=== PATIENT | female | born 1995 | race Caucasian/White ===

== ENCOUNTER 2016-12-11 14:57 | Emergency (ER) | payer OTHER ==
[2016-12-11] MEDS ORDERED: DEXAMETHASONE 10 MG/ML VIAL PO STA (15:59)
[2016-12-11] MEDS ORDERED: DEXAMETHASONE 10 MG/ML VIAL ONE (16:00)
[2016-12-11] MEDS ORDERED: CHERRY SYRUP 10 ML UDC PO ONE (16:01)
== END 2016-12-11 16:06 | disposition home or self-care (01) ==
DX: H66.002 Acute suppurative otitis media without spontaneous rupture of ear drum, left ear (principal); J30.2 Other seasonal allergic rhinitis; R03.0 Elevated blood-pressure reading, without diagnosis of hypertension
CPT/HCPCS: 99283; A9270